=== PATIENT | female | born 1975 | race Caucasian/White ===

== ENCOUNTER 2016-11-18 11:37 | Outpatient (CLI) | payer BC ==
[~2016-11-18] VITALS: Ht 162.6 cm; Wt 85.9 kg
--- NOTE | ~2016-11-18 | HEMODYNAMI ---
PATIENT:RK GUTIERREZ MEDICAL RECORD: [id number] : 71 LOCATION:[facility] ADMISSION DATE: 11/18/16 Generatedon:11/18/201616:09 Patient name: RK GUTIERREZ Patient #: [id number] : 1975 Date of study: 11/18/2016 Page: Of Hemodynamic Procedure Report Patient Data Patient Demographics Procedure consent was obtained First Name: RK Gender: Female Last Name: MATT : 1975 Patient #: [id number] Age: 41 year(s) Race: SSN: [id number] Additional ID: [id number] Contact details [address]: [address] [place] [address] State: [place] City: [place] Zip code: [address] Admission Admission Data Admission Date: 11/18/2016 Admission Time: 11:37 Arrival Date: 11/18/2016 Arrival Time: 14:30 Admit Source: Other Insurance Payor: Private health insurance Weight (lbs.): 197.31 Weight (kg.): 89.5 Lab Results Lab Result Date: 11/18/2016 Lab Result Time: 0:00 Biochemistry Name Units Result Min Max BUN mg/dl 16 --(---*)-- 7 18 Creatinine mg/dl 0.7 --(*---)-- 0.6 1.3 CBC Name Units Result Min Max Hemoglobin g/dl 13.7 --(*---)-- 13.5 17.5 Procedure Procedure Types Cath Procedure Diagnostic Procedure LHC LHC w/Coronaries Procedure Description Procedure Date Procedure Date: 11/18/2016 Procedure Start Time: 15:52 Procedure End Time: 16:06 Procedure Staff Name Function David Rahman MD Performing Physician Kianna Bowie RT Scrub Luzmaria Maher RN Nurse Cata Mccain RT Monitor Procedure Data Cath Procedure Fluoroscopy Diagnostic fluoroscopy Total fluoroscopy Time: 3.2 time: 3.2 min min Diagnostic fluoroscopy Total fluoroscopy dose: 495 dose: 495 mGy mGy Contrast Material Contrast Material Type Amount (ml) Isovue 370 48 Entry Location Entry Primary Successful Side Size Upsize Upsize Entry Closure Oleary ccessful Closure Location (Fr) 1 (Fr) 2 (Fr) Remarks Device Remarks Radial Right 6 Fr Mechanical artery Short Compression Estimated blood loss: 5 ml Diagnostic catheters Device Type Used For End Catheter Placement Terumo Optitorque 5Fr Multi-vessel [place] 4.5 catheter Angiography Cordis Infinity 5Fr AR Right Coronary MOD Catheter Angiography Procedure Complications No complications Procedure Medications Medication Administration Route Dosage Oxygen NC 2 l/min Heparin Flush Bag added to field 2 bags (1000units/500ml NS) Lidocaine 2% added to field 20 Radial Cocktail added to field 1 syringe (Verapomil 2mg/Nitro 400mcg/Heparin 1500units) Benadryl I.V. 50 mg Versed I.V. 1 mg Fentanyl I.V. 50 mcg Versed I.V. 1 mg Fentanyl I.V. 50 mcg Versed I.V. 1 mg Fentanyl I.V. 50 mcg Versed I.V. 1 mg Fentanyl I.V. 50 mcg Radial Cocktail I.A. 1 syringe (Verapomil 2mg/Nitro 400mcg/Heparin 1500units) Fentanyl I.V. 50 mcg Versed I.V. 1 mg Hemodynamics Rest HGB: 13.7 (g/dl) Heart Rate: 57 (bpm) Pressure Samples Time Site Value (mmHg) Purpose Heart Use Rate(bpm) 15:56 LV 122/-10,14 Snapshot 72 15:57 AO 95/63(79) Pullback 65 15:57 LV 120/-5,9 Pullback 65 Gradients Valve Time Site 1 Site 2 Mean SEP/DFP Peak To Heart Use (mmHg) (sec/min) Peak Rate (mmHg) (bpm) Aortic 15:57 LV AO 13 16 25 65 120/-5,9 95/63(79) Calculations Valve P-P Mean Valve Index Valve Source Name Gradient Area Flow (cm2) Aortic 25 13 25 13 Snapshots Pre Cath Intra NCS Post Cath Vital Signs Time Heart Resp SPO2 NIBP (mmHg) Rhythm Pain Sedation Rate (ipm) (%) Status Level (bpm) 15:39:52 53 16 100 134/73(100) NSR 0 (11) 10(A) , No pain 15:44:06 57 15 98 126/100(121) NSR 0 (11) 10(A) , No pain 15:48:22 59 15 98 123/83(97) NSR 0 (11) 10(A) , No pain 15:52:34 59 16 99 122/86(102) NSR 0 (11) 10(A) , No pain 15:56:48 75 17 100 113/64(87) NSR 0 (11) 10(A) , No pain 16:01:00 71 16 100 120/79(94) NSR 0 (11) 10(A) , No pain 16:05:04 68 16 100 126/70(98) NSR 0 (11) 10(A) , No pain Medications Time Medication Route Dose Verified Delivered Reason Notes Effectiveness by by 15:40:38 Oxygen NC 2 l/min David Luzmaria Per Josiah Maher RN physician 15:40:46 Heparin Flush added 2 bags David David used for Bag to Josiah Rahman MD procedure (1000units/500ml field NS) 15:40:52 Lidocaine 2% added 20ml David David used for to vial Josiah Rahman MD procedure field 15:41:04 Radial Cocktail added 1 David David used for (Verapomil to syringe Josiah Rahman MD procedure 2mg/Nitro field 400mcg/Heparin 1500units) 15:41:11 Benadryl I.V. 50 mg David Luzmaria Per Josiah Maher RN physician 15:49:48 Versed I.V. 1 mg David Luzmaria for sedation Josiah Maher RN 15:49:54 Fentanyl I.V. 50 mcg David Luzmaria for sedation Josiah Maher RN 15:51:26 Versed I.V. 1 mg David Luzmaria for sedation Josiah Maher RN 15:51:28 Fentanyl I.V. 50 mcg David Luzmaria for sedation Josiah Maehr RN 15:53:34 Versed I.V. 1 mg David Luzmaria for sedation Josiah Maher RN 15:53:36 Fentanyl I.V. 50 mcg David Luzmaria for sedation Josiah Maher RN 15:54:57 Radial Cocktail I.A. 1 David David for (Verapomil syringe Josiah Rahman MD vasodilation 2mg/Nitro 400mcg/Heparin 1500units) 15:56:15 Versed I.V. 1 mg David Luzmaria for sedation Josiah Maher RN 15:56:17 Fentanyl I.V. 50 mcg David Luzmaria for sedation Josiah Maher RN 15:58:34 Fentanyl I.V. 50 mcg David Luzmaria for sedation Josiah Maher RN 15:58:41 Versed I.V. 1 mg David Luzmaria for sedation Josiah Maher RN Procedure Log Time Note 15:15:21 Kianna Bowie RT(R) sent for patient. Start room use. 15:33:07 Diagnostic Cath Status : Elective 15:33:27 Time tracking: Regular hours 15:33:33 Plan of Care:Hemodynamics will remain stable., Cardiac rhythm will remain stable., Comfort level will be maintained., Respiratory function will remain adequate., Patient/ family verbilizes understanding of procedure., Procedure tolerated without complication., Recovers from procedure without complications.. 15:33:41 Patient received from Outpatients to CCL 1 Alert and oriented. Tansferred to table in Supine position. 15:33:41 Warm blankets applied, and eligio hugger turned on for patient comfort. 15:33:42 Correct patient and procedure confirmed by team. 15:33:43 Signed procedure consent form obtained from patient. 15:38:34 Vital chart was started 15:40:38 Oxygen 2 l/min NC was given by Luzmaria Maher RN; Per physician; 15:40:46 Heparin Flush Bag (1000units/500ml NS) 2 bags added to field was given by David Rahman MD; used for procedure; 15:40:50 ECG and BP/O2 sat monitors applied to patient. 15:40:52 Lidocaine 2% 20ml vial added to field was given by David Rahman MD; used for procedure; 15:40:54 Baseline sample Acquired. 15:40:58 Rhythm: sinus rhythm 15:41:01 Full Disclosure recording started 15:41:04 Radial Cocktail (Verapomil 2mg/Nitro 400mcg/Heparin 1500units) 1 syringe added to field was given by David Rahman MD; used for procedure; 15:41:11 Benadryl 50 mg I.V. was given by Luzmaria Maher RN; Per physician; 15:41:24 H&P Date Dictated: 11/13/2016 Within 30 days and on chart., H&P Addendum completed by physician on day of procedure. (MUST COMPLETE FOR ALL OUTPATIENTS). 15:41:31 Family in waiting room. 15:41:35 Patient NPO since Midnight. 15:45:24 Is the patient allergic to Iodine/contrast media? No. 15:45:26 Was the patient premedicated? No 15:45:32 Is patient on blood thinner?No 15:45:33 Patient diabetic? No. 15:45:35 Previous problem with sedation/anesthesia? No ? 15:45:40 Snore? Yes 15:45:42 Sleep apnea? No 15:45:44 Deviated septum? No 15:45:46 Opens mouth fully? Yes 15:45:47 Sticks out tongue? Yes 15:45:49 Airway obstruction? No ? 15:45:52 Dentures? No ? 15:46:32 Pre procedure: right dorsailis pedis pulse 2+ Normal; easily identifiable; not easily obliterated 15:46:39 Patient pain scale 0/10 ?. 15:46:46 IV patent on arrival in left forearm with 0.9% NaCl at [facility]. 15:47:08 Lab Result : BUN 16 mg/dl 15:47:08 Lab Result : Creatinine 0.7 mg/dl 15:47:08 Lab Result : Hemoglobin 13.7 g/dl 15:48:09 Lab results completed and on chart. 15:48:26 Right Radial & Right Groin area was prepped with chlora-prep and draped in sterile fashion 15:48:27 Alarms reviewed by R. N. 15:48:28 Sharps counted by scrub and verified by R.N. 15:48:38 Physician arrived 15:48:47 --------ALL STOP TIME OUT------ 15:48:53 Final Timeout: patient, procedure, and site verified with staff and physician. All members of the team are in agreement. 15:49:11 Right Radial & Right Groin site verified by team. 15:49:21 Physical assessment completed. ASA score P 2 - A patient with mild systemic disease as per David Rahman MD. 15:49:24 Sedation plan: IV Moderate Sedation Versed, Fentanyl 15:49:43 Use device set Radial Dx 15:49:44 Acist Syringe opened to sterile field. 15:49:44 Cardinal Cath Pack opened to sterile field. 15:49:45 Bag Decanter opened to sterile field. 15:49:45 Terumo 6Fr Slender Glidesheath opened to sterile field. 15:49:45 St Alphonse 260cm J .035 wire opened to sterile field. 15:49:46 Acist Hand Control opened to sterile field. 15:49:46 Acist Manifold opened to sterile field. 15:49:48 Versed 1 mg I.V. was given by Luzmaria Maher RN; for sedation; 15:49:48 Tegaderm 4 x 4 opened to sterile field. 15:49:51 Procedure started. 15:49:54 Fentanyl 50 mcg I.V. was given by Luzmaria Maher RN; for sedation; 15:51:26 Versed 1 mg I.V. was given by Luzmaria Maher RN; for sedation; 15:51:28 Fentanyl 50 mcg I.V. was given by Luzmaria Maher RN; for sedation; 15:52:14 Local anesthetic to right radial artery with Lidocaine 2% by David Rahman MD.INITIAL ACCESS ONLY 15:52:22 A 6 Fr Short sheath was inserted into the Right Radial artery 15:53:34 Versed 1 mg I.V. was given by Luzmaria Maher RN; for sedation; 15:53:36 Fentanyl 50 mcg I.V. was given by Luzmaria Maher RN; for sedation; 15:54:57 Radial Cocktail (Verapomil 2mg/Nitro 400mcg/Heparin 1500units) 1 syringe I.A. was given by David Rahman MD; for vasodilation; 15:55:46 A Terumo Optitorque 5Fr [place] 4.5 catheter was advanced over the wire and used for Multi-vessel Angiography. 15:56:15 Versed 1 mg I.V. was given by Luzmaria Maher RN; for sedation; 15:56:17 Fentanyl 50 mcg I.V. was given by Luzmaria Maher RN; for sedation; 15:56:51 LV hemodynamics recorded. 15:56:52 LV gram done using TAYLOR 15:56:54 Injector settings: Ml/sec: 5, Volume: 15, 15:57:29 EF : 60 % 15:58:08 LCA angiography performed. 15:58:13 Injector settings: Ml/sec: 3, Volume: 6, 15:58:34 Fentanyl 50 mcg I.V. was given by Luzmaria Maher RN; for sedation; 15:58:41 Versed 1 mg I.V. was given by Luzmaria Maher RN; for sedation; 16:00:18 Catheter removed. 16:00:28 A Sailogy Infinity 5Fr AR MOD Catheter was advanced over the wire and used for Right Coronary Angiography. 16:01:14 RCA angiography performed. 16:01:17 Injector settings: Ml/sec: 3, Volume: 6, 16:02:05 Catheter removed. 16:03:04 Terumo TR Band Standard opened to sterile field. 16:03:36 Sheath removed intact; hemostasis achieved with Mechanical Compression to the Right Radial artery. 16:03:38 Procedure ended.(Physican Out) 16:04:10 Fluoroscopy time 03.20 minutes. 16:04:14 Fluoroscopy dose: 495 mGy 16:04:14 Flurop Dose total: 495 16:04:23 Contrast amount:Isovue 370 48ml. 16:04:24 Sharps counted by scrub and verified by R.N. 16:04:28 TR band inflated with 10cc of air. 16:04:30 Insertion/operative site no bleeding no hematoma. 16:04:38 Post right radial artery:stable 16:04:39 Post Procedure Pulses reassessed and unchanged 16:04:43 Post procedure rhythm: unchanged. 16:04:46 Estimated blood loss: 5 ml 16:04:58 Post procedure instruction explained to patient.Patient verbalizes understanding. 16:04:59 Patient needs reinforcement of post procedure teaching. 16:05:09 Procedure and supply charges have been captured, reviewed, submitted and are correct. 16:05:14 Procedure Complication : No complications 16:05:17 Vital chart was stopped 16:05:20 See physician's report for complete and final results. 16:06:00 Report given to Outpatients. 16:06:02 Patient transfered to Outpatients with Stretcher. 16:06:05 Procedure ended. 16:06:05 Full Disclosure recording stopped 16:06:13 End room use (Document Last) 16:08:21 Arrival Date: 11/18/2016 2:30:00 PM 16:08:30 Insurance Payor : Private health insurance 16:08:31 Admit Source: Other 16:08:32 Patient Weight : 89.5 lbs Device Usage Item Name Manufacture Quantity Catalog Hospital Part Current Minimal Lot# / Number Charge Number Stock Stock Serial# Code Acist Acist 1 49748 [id number] 261428 196080 20 Syringe [employer] Cardinal Cardinal 1 [id number] 01599 336852 5 Cath Pack Health Bag Microtek 1 2002S 966559 70707 378131 5 Decanter Medical Inc. Terumo 6Fr Terumo 1 [id number] 057083 874334 962605 [address] St Alphonse 1 974781 371424 881834 008220 30 260cm J .035 wire Acist Hand Acist 1 85243 864801 089714 755672 5 Control [employer] Inc Acist Acist 1 62184 290520 969906 543473 5 Manifold [employer] Inc Tegaderm 4 3M 1 1626W 904276 374315 522062 5 x 4 Terumo Terumo 1 40-2372 541929 301703 752515 5 Optitorque 5Fr [place] 4.5 catheter Cordis Cardinal 1 [id number] 944894 248459 811096 15 Infinity Health 5Fr AR MOD Catheter Terumo TR Terumo 1 [id number] 271212 267956 303457 40 Band Standard Signature Audit Jewett Stage Time Signature Unsigned Intra-Procedure 11/18/2016 Cata Mccain 4:08:56 PM RT(R) Signatures Monitor : Cata Mccain RT Signature : Date : Time : [facility] [address] [place] [address]
[2016-11-18 13:13] LABS: BASOPHILS 0.3 % (0.0-2.0); EOSINOPHILS 0 % (0-7); HEMATOCRIT 41.3 % (36.0-48.0); HEMOGLOBIN 13.7 g/dL (12-16); IMMATURE GRANULOCYTES 0.3 % (0-5); LYMPHOCYTES 15.3 % (15-50); MCH 31.9 pg (26.0-34.0); MCHC 33.2 g/dL (31.0-37.0); MEAN PLATELET VOLUME 11.6 fL (7.4-10.4); MONOCYTES 2.3 % (2-11); NEUTROPHILS 81.8 % (40-80); PLATELET COUNT 229 10x3/uL (130-400); WBC 7.8 10x3/uL (4.8-10.8)
[2016-11-18 13:21] LABS: CALC OSMOLALITY 276 mosm/kg (275-300); CALCIUM 9.1 mg/dL (8.5-10.1); CARBON DIOXIDE 29.6 mmol/L (21.0-32.0); CHLORIDE - SERUM 101 mmol/L (98-107); CREATININE - SERUM 0.7 mg/dL (0.6-1.3); GLUCOSE 103 mg/dL (74-106); POTASSIUM - SERUM 4.3 mmol/L (3.5-5.1); SODIUM 138 mmol/L (136-145); UREA NITROGEN 16 mg/dL (7-18); eGFR NON AFRICAN AMERICAN > 90 mL/min (90-120)
[2016-11-18] MEDS ORDERED: NITROQUICK0.4 MG SL (14:04)
[2016-11-18] MEDS ORDERED: CELEXA40 MG PO (14:04)
[2016-11-18] MEDS ORDERED: TRAZODONE HCL150 MG PO (14:05)
[2016-11-18] MEDS ORDERED: BAYER CHEWABLE81 MG PO (14:05)
[2016-11-18] MEDS ORDERED: XANAX0.5 MG PO (14:06)
[2016-11-18] MEDS ORDERED: VERELAN180 MG PO (14:07)
[2016-11-18] MEDS ORDERED: FUROSEMIDE20 MG PO (14:08)
[2016-11-18] MEDS ORDERED: K-DUR20 MEQ PO (14:09)
[2016-11-18 14:17] VITALS: BP 118/78; Ht 162.6 cm; Wt 85.9 kg
--- NOTE | 2016-11-18 17:55 | NUR ---
1745 CONTINUE TO REMOVE AIR FROM TR BAND SLOWLY FROM TR BAND WITHOUT BLEEDING.
--- NOTE | 2016-12-04 13:15 | OP ---
PATIENT NAME: RK GUTIERREZ MEDICAL RECORD: [id number] :71 LOCATION:[facility] ADMISSION DATE: SURGEON: AZRA LOPZE M.D. DATE OF OPERATION: 11/18/2016 REFERRING PHYSICIAN: Dr. Charly Arango at [place], [place]. PROCEDURES PERFORMED: 1. Selective coronary angiography. 2. Left heart catheterization with ventriculogram. INDICATION: A 41-year-old presents with symptoms of angina. Recent stress testing was positive for ischemia. EQUIPMENT USED: A 5-[place] Kennedy catheter. TECHNIQUE: A 6-[place] sheath was placed in retrograde fashion in the right radial artery. Next, selective coronary angiography was performed in standard views using a 5-[place] Kennedy catheter. Left heart catheterization was performed using Kennedy catheter as well. CORONARY ANATOMY: 1. Left main: Left main trunk is moderate in caliber. It gives rise to the LAD and circumflex. It is angiographically normal. 2. LAD: This is a moderate caliber vessel extending to the apex. It gives rise to a moderate caliber diagonal proximal segment. The LAD and diagonal are smooth-walled vessels and are angiographically normal. 3. Circumflex: This vessel is moderate in caliber and codominant. It supplies the lateral branch in the proximal segment and 2 large posterolateral branch in distal segment. The circumflex and its tributaries are smooth-walled and angiographically normal. 4. Right coronary: This vessel is moderate in caliber and codominant. It is a smooth-walled vessel and angiographically normal. 5. Left ventricle: Left ventricle is normal in size and function. No wall motion abnormalities are seen. Estimated ejection fraction is 60%. IMPRESSION: 1. Normal coronary arteries. 2. Normal left ventricular function. RECOMMENDATIONS: At this point, we will continue with workup for noncardiac chest pain. TRANSINT:[id number] Voice Confirmation ID: [id number] DOCUMENT ID: [id number] AZRA LOPEZ M.D. at 1315 CC: [id number] DICTATION DATE: 11/18/16 1608 BRICK DROPPER: 11/18/16 1844 DEP CLI 11/18/16 [place] [address]
== END 2016-11-18 18:35 | disposition home or self-care (01) ==
LOC: D.CATH 11:37
PROVIDERS: Internal Medicine Cardiovascular Disease
DX: I20.9 Angina pectoris, unspecified (principal); R06.02 Shortness of breath; I10 Essential (primary) hypertension; F17.200 Nicotine dependence, unspecified, uncomplicated